=== PATIENT | male | born 1960 | race Caucasian/White ===

== ENCOUNTER → 2019-07-19 | Outpatient (CLI) | payer MEDICARE ==
[~2019-07-19] MED LIST: IBUPROFEN400 MG PO; LEXAPRO 10MG10 MG PO
== END ==
LOC: COL.RAD 13:08
DX: I10 Essential (primary) hypertension (principal); I77.810 Thoracic aortic ectasia; M47.814 Spondylosis without myelopathy or radiculopathy, thoracic region; N20.0 Calculus of kidney; N28.1 Cyst of kidney, acquired
CPT/HCPCS: Q9967